=== PATIENT | female | born 2000 ===

== ENCOUNTER 2019-02-17 10:45 | Emergency (ER) | payer SELFPAY ==
[2019-02-17] MEDS ORDERED: NA CHLORIDE 0.9% 1,000 ML ONE (11:53)
[2019-02-17] MEDS ORDERED: Levofloxacin500mg IV 500 MG/100 ML BAG IV ONE (11:54)
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
[2019-02-17 12:10] LABS: Barbiturates NEGATIVE (NEGATIVE); Benzodiazepines POSITIVE (NEGATIVE); Cocaine NEGATIVE (NEGATIVE); METHAMPHETAM POSITIVE (NEGATIVE); Methadone NEGATIVE (NEGATIVE); Opiates NEGATIVE (NEGATIVE); Phencyclidine NEGATIVE (NEGATIVE); THC Cannibis POSITIVE (NEGATIVE)
[2019-02-17 12:43] LABS: Absolute Lymphocytes (CBC) 2.4 K/uL (0.7-4.9); Basophils % 0.9 % (0-1.3); Eosinophils % 3.4 % (0-4.4); Hematocrit 35.1 % (36.0-45.0); Lymphocytes % 22.2 % (15.3-44.8); MPV 8.5 fL (7.6-11.3); Monocytes % 8.2 % (3.3-12.3); RBC Red Blood Cell Count 4.45 M/uL (3.86-4.86)
[2019-02-17 12:48] LABS: Protime INR 1.25
[2019-02-17 12:55] LABS: Urine Blood 1+ (NEG); Urine Glucose NEGATIVE (NEG); Urine Protein 2+ (NEG); Urine Specific Gravity >1.030 (1.005-1.030); Urine pH 5.5 (5.0-7.0)
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
[2019-02-17 13:37] LABS: ALT/SGPT 17 U/L (12-78); AST/SGOT 17 U/L (15-37); Albumin 3.7 g/dL (3.4-5.0); Alkaline Phosphatase 73 U/L (45-117); BUN Blood Urea Nitrogen 11 mg/dL (7-18); Bicarbonate 23 mmol/L (21-32); Bilirubin Direct 0.1 mg/dL (0-0.2); Bilirubin Total 0.5 mg/dL (0.2-1.0); Glucose Level 71 mg/dL (74-106); Potassium 3.3 mmol/L (3.5-5.1); Sodium Level 138 mmol/L (136-145)
[2019-02-17] MEDS ORDERED: SMZ./TMP. 800/160 MG TABLET ONE (13:37)
--- NOTE | 2019-02-17 15:15 | EKG ---
Test Date: 2019-02-17 Test Time: 12:53:52 Technical Sales Associate: JAMILAH MEASUREMENT RESULTS: Intervals: Rate: 95 CA: 146 QRSD: 84 QT: 368 QTc: 462 [place]: P: 67 CA: 146 QRS: 53 T: 53 INTERPRETIVE STATEMENTS: Normal sinus rhythm Normal ECG No previous ECG available for comparison Electronically Signed On 02-17-19 15:16:02 CDT by Tab Cheney
== END 2019-02-17 13:37 | disposition home or self-care (01) ==
LOC: ER 10:45
DX: S00.90XA Unspecified superficial injury of unspecified part of head, initial encounter (principal); N30.90 Cystitis, unspecified without hematuria; W10.9XXA Fall (on) (from) unspecified stairs and steps, initial encounter; Y04.8XXA Assault by other bodily force, initial encounter
CPT/HCPCS: 36415; 70450; 71260; 72125; 74177; 80048; 80076; 80307; 80320; 80329; 81003; 81025; 85025; 85610; 85730; 86850; 86900; 86901; 87077; 87086; 87088; 87186; 93005; 96365; 99284; J7030